=== PATIENT | female | born 1940 | race Caucasian/White ===

== ENCOUNTER → 2016-08-10 | Outpatient (CLI) | payer OTHER | LOC: BMCIMAGING 12:20 | PROVIDERS: ATTEND Internal Medicine | DX: Z12.31 Encounter for screening mammogram for malignant neoplasm of breast (principal); Z80.3 Family history of malignant neoplasm of breast | CPT/HCPCS: G0202 ==

== ENCOUNTER → 2016-11-24 | Outpatient (CLI) | payer OTHER | LOC: BMCIMAGING 15:13 | PROVIDERS: ATTEND Podiatrist Foot & Ankle Surgery | DX: M25.571 Pain in right ankle and joints of right foot (principal); R22.41 Localized swelling, mass and lump, right lower limb ==

== ENCOUNTER → 2017-03-14 | Outpatient (CLI) | payer OTHER | LOC: BMCIMAGING 10:51 | PROVIDERS: ATTEND Internal Medicine | DX: Z13.820 Encounter for screening for osteoporosis (principal); M85.80 Other specified disorders of bone density and structure, unspecified site ==

== ENCOUNTER → 2018-05-22 | Outpatient (CLI) | payer OTHER | LOC: FIMAGING 12:30 | PROVIDERS: ATTEND Surgery | DX: C43.8 Malignant melanoma of overlapping sites of skin (principal) ==

== ENCOUNTER 2018-06-05 07:10 | Day surgery (SDC) | payer OTHER ==
[2018-06-05] MEDS ORDERED: LIDOCAINE 1% 2 ML INJ ID PRN (07:27)
[2018-06-05] MEDS ORDERED: LR 1,000 ML IV ONE (07:27)
[2018-06-05] MEDS ORDERED: LIDO/EPI 1% **for epidural** 30 ML SDV ONE (08:56)
[2018-06-05] MEDS ORDERED: BUPIVACAINE/EPI 0.5% 30 ML SDV ONE (08:56)
--- NOTE | 2018-06-05 09:10 | PDHPUP ---
History & Physical Update H&P update statement: This history and physical update is based on an assessment of the patient which was completed after admission or registration (within 24 hours), but prior to the surgery/procedure. H&P update: H&P reviewed & patient examined, no change in patient's condition since H&P completed
[2018-06-05] MEDS ORDERED: METHYLENE BLUE 0.5% 50 MG/10 ML AMP ONE (09:17)
--- NOTE | 2018-06-05 09:23 | PDANEPAE ---
ANE History of Present Illness 78 yo here for wide excision of melanoma (back) + SLN biopsy Dual chamber ppm reprogrammed to DOO 80 ANE Past Medical History - Cardiovascular History Hx Hypertension: Yes Hx Arrhythmias: No Hx Chest Pain: No Hx Coronary Artery / Peripheral Vascular Disease: No Hx CHF / Valvular Disease: No Hx Palpitations: No Cardiovascular History Comment: SICK SINUS SYNDROME, dual chamber pacemaker. Normal nucelar stress. Normal TTE - Pulmonary History Hx COPD: No Hx Asthma/Reactive Airway Disease: Yes Hx Recent Upper Respiratory Infection: No Hx Oxygen in Use at Home: No Hx Sleep Apnea: No Sleep Apnea Screening Result - Last Documented: Negative Pulmonary History Comment: ASTHMA TRIGGERS ENVIRONMENTAL. 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 - Neurologic History Hx Cerebrovascular Accident: No Hx Seizures: No Hx Dementia: No - Endocrine History Hx Diabetes: No - Renal History Hx Renal Disorders: No Renal History Comment: FREQUENCY - Liver History Hx Hepatic Disorders: No - Neurological & Psychiatric Hx Hx Neurological and Psychiatric Disorders: Yes Neurological / Psychiatric History Comment: ANXIETY - Cancer History Hx Cancer: Yes Cancer History Comment: MELANOMA - Congenital Disorder History Hx Congenital Disorders: No - GI History Hx Gastrointestinal Disorders: No - Other Health History Other Health History: PERIPHERAL NEUROPATHY - Chronic Pain History Chronic Pain: No - Surgical History Prior Surgeries: PACEMAKER 2013. BREAST BX. T&A. SINUS 2010 ANE Review of Systems Review of Systems: - Exercise capacity METS (RN): 4 METS - Pacemaker Pacemaker Type: Permanent Pacer/Defib Pacemaker Ground Hand: Social Pulseronideskwolf Pacemaker Model: Sushil TAPIA Date Pacemaker Last Checked: 01/15/18 ANE Patient History - Allergies Allergies/Adverse Reactions: No Known Allergies Allergy (Unverified 07/11/12 07:54) - Home Medications Home medications: home medication list seen and reviewed Home Medications: Albuterol [Proventil Inhaler (RX)] 2 puffs IH PRN PRN 07/11/12 [Last Taken 05/31] Chlorpheniramine Maleate [Allergy Relief] 4 mg PO HS 07/11/12 [Last Taken ] ESCITALOPRAM OXALATE [Lexapro] 20 mg PO DAILY 07/11/12 [Last Taken 06/05/18 06: 15] GABAPENTIN 600 mg PO HS 07/11/12 [Last Taken 06/04/18] Herbals/Supplements -Info Only 1 each PO AD 07/11/12 [Last Taken 05/29/18] Ibuprofen [Motrin (*)] 200 mg PO HS 07/11/12 [Last Taken 06/01/18] clonazePAM [klonoPIN (RX)] 2 mg PO HS 07/11/12 [Last Taken 06/04/18] Breo Ellipta 200-25 Mcg INH DAILY 05/25/18 [Last Taken 06/05/18 06:00] Flonase Nasal [place] DAILY 05/25/18 [Last Taken 06/05/18 06:00] Furosemide DAILY 05/25/18 [Last Taken 06/04/18] Losartan Potassium DAILY 05/25/18 [Last Taken 06/05/18 06:15] Zebeta (*) DAILY 05/25/18 [Last Taken 06/05/18 06:15] - NPO status NPO Since - Liquids (Date): 06/04/18 NPO Since - Liquids (Time): 23:30 NPO Since - Solids (Date): 06/04/18 NPO Since - Solids (Time): 22:00 - Smoking Hx Smoking Status: Never smoked ANE Labs/Vital Signs - Vital Signs Blood Pressure: 155/102 Heart Rate: 79 Respiratory Rate: 11 O2 Sat (%): 92 Height: 163.83 cm Weight: 77.111 kg ANE Physical Exam - Airway Neck exam: decreased ROM Mallampati Score: Class 3 Mouth exam: normal dental/mouth exam - Pulmonary Pulmonary: clear to auscultation - Cardiovascular Cardiovascular: regular rate and rhythym - ASA Status ASA Status: III ANE Anesthesia Plan Anesthesia Plan: MAC
[2018-06-05] MEDS ORDERED: PROPOFOL/EMULSION 500 MG/50 ML BOTTLE IV ONE (09:24)
[2018-06-05] MEDS ORDERED: fentaNYL 100 MCG/2 ML INJ ONE (09:24)
[2018-06-05] MEDS ORDERED: ONDANSETRON 4 MG/2 ML VIAL IVP PRN (10:08)
[2018-06-05] MEDS ORDERED: PROMETHAZINE HCL 25 MG/ML INJ IVP PRN (10:08)
[2018-06-05] MEDS ORDERED: HYDROmorphONE/DILAUDID 2 MG/ML INJ IVP PRN (10:08)
[2018-06-05] MEDS ORDERED: ALBUTEROL 3 ML DEYVIAL IH PRN (10:08)
[2018-06-05] MEDS ORDERED: fentaNYL 100 MCG/2 ML INJ IVP PRN (10:08)
[2018-06-05] MEDS ORDERED: ACETAMINOPHEN 500 MG TAB PO PRN (10:08)
[2018-06-05] MEDS ORDERED: NALOXONE HCL 0.4 MG/ML INJ IVP PRN (10:08)
[2018-06-05] MEDS ORDERED: LR 500 ML IV PRN (10:08)
[2018-06-05] MEDS ORDERED: DEXAMETHASONE 4 MG/ML VIAL IVP PRN (10:08)
--- NOTE | 2018-06-05 10:46 | POSTOPPROG ---
Post Op Note Date of Operation: 06/05/18 Surgeon: Ernesto Preston Manager Home Healthcare: Cristina Lombardo PA-C Anesthesiologist: Stephanie Alcantara MD Anesthesia: IV Sedation Pre-op Diagnosis: Back melanoma Post-op Diagnosis: Same Procedure: WLE back melanoma with right axillary SLNB Inf/Abcess present in the surg proc area at time of surgery?: No EBL: Minimal Specimen(s): melanoma + nodes
[2018-06-05 12:22] VITALS: BP 173/90
--- NOTE | 2018-06-05 12:42 | POSTANESTH ---
Post Anesthetic Evaluation Cardiovascular Status: Normal, Stable Respiratory Status: Normal, Stable Level of Consciousness/Mental Status: Can Participate in Eval Pain Control: Adequate, Prn Tx Ordered Nausea/Vomiting Control: Adequate, Prn Tx Ordered Complications Possibly Related to Anesthesia: None Noted
--- NOTE | 2018-06-06 06:49 | GOP ---
[f rep st] OPERATIVE REPORT DATE OF OPERATION: 06/05/2018 SURGEON: Ernesto Preston MD SAUSAGE INSPECTOR: Cristina Lombardo PA-C. ANESTHESIA: MAC. ANESTHESIOLOGIST: Stephanie Alcantara MD. PREOPERATIVE DIAGNOSIS: Right back melanoma. POSTOPERATIVE DIAGNOSIS: Right back melanoma. PROCEDURE PERFORMED: Wide local excision right back melanoma with right axillary sentinel lymph node biopsy. FINDINGS: See below. INDICATIONS: 78-year-old female with a newly diagnosed, rapidly progressive right upper paramedian back intermediate thickness melanoma. She is undergoing wide excision with sentinel node sampling at this time. Preoperative lymphoscintigraphy showed uptake within the right axilla. Risks and benefits were explained including not limited to bleeding, infection, tumor recurrence, need for additional margin resection, arm edema, nerve injury, as well as others. All questions were answered. She desires to proceed. practice assistant is standard and necessary and customary for the safe performance of this procedure. DESCRIPTION OF PROCEDURE: Monitored anesthesia was started. The patient was placed in left lateral decubitus position. The right upper paramedian melanoma was infiltrated with 1% lidocaine 0.5% Marcaine. A large elliptical incision was created around the lesion allowing for 1-2 cm margins radially at all edges. The lesion was taken full thickness down toward the muscular fascia. The specimen was tagged for orientation and sent for permanent specimen processing. The skin was widely undermined radially, allowing for the wound to be reapproximated in longitudinal orientation. This was performed in multiple layers with absorbable suture deep, followed by multiple interrupted horizontal mattress sutures for the subcutaneous layers. Satisfactory hemostasis was assured. Sterile dressings were applied, and the patient repositioned supine with arms out. The right axilla was infiltrated with 1% lidocaine and 0.5% Marcaine. A low hairline incision was created. The axillary fat was divided down into toward the sentinel node. Two hot nodes were identified measuring 4500 units as well as 450 units on the gamma counter. These nodes were soft and friable and were sent for permanent sectioning. No appreciable palpable adenopathy was noted. Background activity was all less than 50 units. Satisfactory hemostasis was assured throughout the axilla. The wound was closed in layers with absorbable sutures and Dermabond. The patient was taken to Recovery uneventfully. /[id number]/MODL MTDD
== END 2018-06-05 12:30 | disposition home or self-care (01) ==
LOC: FSGY 07:10
PROVIDERS: ATTEND Surgery
PROC: 07B50ZZ Excision of Right Axillary Lymphatic, Open Approach (ICD-10-PCS; principal; 2018-06-05 09:15)
PROC: 0JB70ZZ Excision of Back Subcutaneous Tissue and Fascia, Open Approach (ICD-10-PCS; principal; 2018-06-05 09:15)
DX: C43.8 Malignant melanoma of overlapping sites of skin (principal); Z85.828 Personal history of other malignant neoplasm of skin; M31.30 Wegener's granulomatosis without renal involvement; I49.5 Sick sinus syndrome; Z95.0 Presence of cardiac pacemaker; I10 Essential (primary) hypertension; J44.9 Chronic obstructive pulmonary disease, unspecified
CPT/HCPCS: 21930; 38500; 78195; A9520; J2704; J3010; Q9968

== ENCOUNTER → 2018-06-29 | Outpatient (CLI) | payer OTHER | LOC: FIMAGING 11:29 | PROVIDERS: ATTEND Surgery | DX: N83.201 Unspecified ovarian cyst, right side (principal); D25.9 Leiomyoma of uterus, unspecified ==